=== PATIENT | female | born 1990 | race Caucasian/White ===

== ENCOUNTER → 2021-03-15 | Outpatient (CLI) | payer OTHER ==
--- NOTE | 2021-03-15 17:36 | Diagnostic Imaging Report ---
INDICATION: Fall with tailbone pain. Time of exam: 4:42 PM Frontal and lateral views of the sacrum and coccyx were obtained. There is some focal cortical interruption along the anterior cortex near the sacrococcygeal junction suggestive of a fracture, minimally displaced. No other fractures are seen. Arcuate lines are intact. SI joints are non-widened. IMPRESSION: Findings suggestive of fracture near the sacrococcygeal junction, minimally displaced. Dictated by: Dictated on workstation # [id number]
== END ==
LOC: RAD 16:16
PROVIDERS: ATTEND Nurse Practitioner Family
DX: S39.92XA Unspecified injury of lower back, initial encounter (principal); W19.XXXA Unspecified fall, initial encounter
CPT/HCPCS: 72220

== ENCOUNTER 2021-07-16 22:05 | Emergency (ER) | payer OTHER ==
[~2021-07-16] VITALS: Ht 165.1 cm; Wt 106.2 kg
[2021-07-16] MEDS ORDERED: ONDANSETRON 4 MG/2 ML (SDV) Z0FRAN IVP ONE (22:30)
[2021-07-16] MEDS ORDERED: fentaNYL INJ 100 MCG/2 ML AMP IVP ONE ×2 (22:30→23:30)
[2021-07-16 22:34] LABS: BASOPHILS # (AUTO) 0.1 10^3/uL (0.0-0.1); BASOPHILS % (AUTO) 0 % (0-10); EOSINOPHILS # (AUTO) 0.3 10^3/uL (0.0-0.3); EOSINOPHILS % (AUTO) 2 % (0-10); HEMATOCRIT 43 % (35-52); HEMOGLOBIN 14.3 g/dL (11.5-16.0); LYMPHOCYTES # (AUTO) 3.5 10^3/uL (1.0-4.0); LYMPHOCYTES % (AUTO) 29 % (12-44); MEAN CORPUSCULAR HEMOGLOBIN 30 pg (25-34); MEAN CORPUSCULAR HGB CONC 34 g/dL (32-36); MEAN CORPUSCULAR VOLUME 88 fL (80-99); MONOCYTES # (AUTO) 0.6 10^3/uL (0.0-1.0); MONOCYTES % (AUTO) 5 % (0-12); NEUTROPHILS # (AUTO) 7.8 10^3/uL (1.8-7.8); NEUTROPHILS % (AUTO) 64 % (42-75); PLATELET COUNT 323 10^3/uL (130-400); WHITE BLOOD COUNT 12.2 10^3/uL (4.3-11.0)
[2021-07-16 22:54] LABS: INR 0.9 (0.8-1.4)
[2021-07-16 22:58] LABS: ALANINE AMINOTRANSFERASE 23 U/L (0-55); ALBUMIN 4.6 GM/DL (3.2-4.5); ALKALINE PHOSPHATASE 87 U/L (40-136); BILIRUBIN,TOTAL 0.5 MG/DL (0.1-1.0); BUN/CREATININE RATIO 13; CALCIUM 9.8 MG/DL (8.5-10.1); CARBON DIOXIDE 21 MMOL/L (21-32); CHLORIDE 101 MMOL/L (98-107); CREATININE SERUM 1.04 MG/DL (0.60-1.30); GFR ESTIMATED 61; GLUCOSE 100 MG/DL (70-105); POTASSIUM 3.5 MMOL/L (3.6-5.0); SODIUM 137 MMOL/L (135-145)
--- NOTE | 2021-07-16 23:48 | Diagnostic Imaging Report ---
EXAM: TIBIA/FIBULA, RIGHT, 2 VIEWS INDICATION: Right leg pain. COMPARISON: None. FINDINGS: Mildly displaced oblique fracture of the distal right fibular diaphysis. There is a more moderately displaced fracture of the medial malleolus. There is also a posterior malleolus fracture with mild displacement. No radiopaque foreign bodies. IMPRESSION: Fractures of the distal right fibular diaphysis, medial malleolus and posterior malleolus. Dictated by: Dictated on workstation # [id number]
--- NOTE | 2021-07-16 23:49 | Diagnostic Imaging Report ---
EXAM: FOOT, RIGHT, 2 VIEW INDICATION: Right lower extremity pain and trauma. COMPARISON: Right tibia, fibula and ankle radiographs also performed today.. FINDINGS: No fracture or malalignment in the right foot. Fractures of the distal right fibula and tibia are better demonstrated on the ankle radiographs performed today. IMPRESSION: No acute radiographic findings in the right foot. Dictated by: Dictated on workstation # [id number]
--- NOTE | 2021-07-16 23:50 | Diagnostic Imaging Report ---
EXAM: ANKLE, LEFT, 3 VIEWS INDICATION: Left ankle trauma and pain. COMPARISON: None FINDINGS: No fracture or malalignment. Soft tissue shadows are unremarkable. IMPRESSION: No acute radiographic findings in the left ankle. Dictated by: Dictated on workstation # [id number]
--- NOTE | 2021-07-16 23:52 | Diagnostic Imaging Report ---
EXAM: ANKLE, RIGHT, 3 VIEWS INDICATION: Right ankle trauma and pain. COMPARISON: Right tibia and fibula radiographs also performed today. FINDINGS: Mildly displaced oblique fracture of the distal right fibular diaphysis. Displaced right medial malleolus fracture. There is also a posterior malleolus fracture with mild displacement. Soft tissue shadows are unremarkable. IMPRESSION: Fractures of the distal right fibular diaphysis, medial malleolus and posterior malleolus. Dictated by: Dictated on workstation # [id number]
[2021-07-17] MEDS ORDERED: fentaNYL INJ 100 MCG/2 ML AMP ONE (00:05)
[2021-07-17] MEDS ORDERED: HYDR-34 PO ×2 (00:24→00:25)
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
[2021-07-17] MEDS ORDERED: TETANUS,DIPTH,PERTUSS P/F (BOOSTRIX) 0.5 ML VIAL IM ONE (00:30)
[2021-07-17 01:21] VITALS: BP 131/90
[2021-07-17] MEDS ORDERED: HYDR-3817 PO (10:29)
== END 2021-07-17 01:21 | disposition home or self-care (01) ==
LOC: EDUNIT# 22:05 → ER 22:08
DX: S82.851A Displaced trimalleolar fracture of right lower leg, initial encounter for closed fracture (principal); S93.402A Sprain of unspecified ligament of left ankle, initial encounter; E66.9 Obesity, unspecified; R06.4 Hyperventilation; Z23 Encounter for immunization; Z68.38 Body mass index [BMI] 38.0-38.9, adult; W10.8XXA Fall (on) (from) other stairs and steps, initial encounter
CPT/HCPCS: 36415; 73590; 73610; 73620; 80053; 84703; 85025; 85610; 85730; 90471; 90715; 93041; 96374; 96375; 96376